=== PATIENT | female | born 1935 | race Caucasian/White ===

== ENCOUNTER 2016-12-31 00:18 | Inpatient (IN) | payer OTHER ==
[~2016-12-31] VITALS: Ht 160 cm; Wt 49.9 kg
--- NOTE | 2016-12-31 03:22 | ED CLINICAL REPORT ---
Clinical Report - Physicians/Mid Levels Located Within [facility] [address] [place] [address] 12/31/2016 0:18 Patient: ANSELMO HURTADO Time Seen: 00:26. Arrived- By private vehicle. Historian- patient and family. HISTORY OF PRESENT ILLNESS Chief Complaint: DYSPNEA. This started 3 days ago; Lots worse tonight, "I felt like I was drowning" after 20 foot walk. Usually an walk 75 feet with a walker and is still present. It was gradual in onset. The dyspnea is severe and is worsened by walking. No cough, sputum production, fever, wheezing or chills. No chest pain or discomfort. She has had dyspnea on exertion and orthopnea. Similar symptoms previously: Several times. Recent medical care: The patient was seen recently at this facility in the emergency department. ( UTI). REVIEW OF SYSTEMS The patient has had chills, a cough and difficulty breathing. No fever, photophobia, ear pain, sore throat or chest pain. No pedal edema, abdominal pain, black stools, bloody stools or constipation. No diarrhea, nausea, vomiting, urinary frequency or laceration. No headache, head injury or difficulty with urination. PAST HISTORY PAST HISTORY PCP: Walter PROBLEMS: Influenza. SOB. Hip Fracture. Fall. Bronchospasm. Pneumonia. COPD - Chronic Obstructive Pulmonary Disease. ADDITIONAL SURGERIES: Hip Surgery. Tonsillectomy. SOCIAL HISTORY Former smoker. ADDITIONAL NOTES The nursing notes have been reviewed. PHYSICAL EXAM Vital Signs: 12/31/2016 04:02 BP: 158/76. HR: 114. RR: 20. O2 saturation: 98%. Temp: 98 F. Pain level now: 0/10. 12/31/2016 02:51 BP: 125/64. HR: 118. RR: 17. O2 saturation: 97%. 12/31/2016 02:28 BP: 160/80. HR: 123. RR: 25. O2 saturation: 96%. 12/31/2016 01:44 BP: 146/87. HR: 118. RR: 20. O2 saturation: 95%. 12/31/2016 01:09 BP: 162/75. HR: 114. RR: 20. O2 saturation: 94%. Pain level now: 0/10. 12/31/2016 00:32 Temp: 97.5 F. 12/31/2016 00:23 BP: 164/91. HR: 116. RR: 28. O2 saturation: 83%. Pain level now: 0/10. Appearance: Alert. No acute distress. Eyes: Eyes normal inspection. ENT: Pharynx normal. Neck: No jugular venous distention. CVS: Tachycardia. Respiratory: Prolonged expirations. Decreased air movement (Right greater than L). Expiratory mild bilateral wheezes present. No stridor or rales. Abdomen: Soft and nontender. Skin: Skin warm. Normal skin color. Extremities: Extremities exhibit normal ROM. No lower extremity edema. Neuro: No alteration in mental status. No motor deficit. No sensory deficit. LABS, X-RAYS, AND EKG Laboratory Tests: UA-Culture if indicated: (RAPHAEL: 12/31/2016 01:05) ( [facility] 12/31/2016 01:30) Final results Test Result Flag Units (Reference) URINE COLOR YELLOW URINE APPEARANCE CLEAR URINE GLUCOSE NEGATIVE (NEGATIVE) URINE BILIRUBIN NEGATIVE (NEGATIVE) URINE KETONE NEGATIVE (NEGATIVE) URINE SPECIFIC GRAVITY 1.010 (1.010-1.030) URINE PH 6.0 (5.0-8.0) URINE PROTEIN NEGATIVE (NEGATIVE) URINE UROBILINOGEN 0.2 EU/dL (0.2-1.0) URINE NITRITE NEGATIVE (NEGATIVE) URINE BLOOD NEGATIVE (NEGATIVE) URINE LEUK ESTERASE NEGATIVE (NEGATIVE) URINE RBC 0-1 rbc/hpf (0-1) URINE WBC NONE SEEN wbc/hpf (0-1) URINE EPITHELIAL CELLS NONE SEEN EPI/hpf (0-5) URINE BACTERIA NONE SEEN (NONE SEEN) URINE COMMENT CULT NOT INDICATED URINE CULTURES ARE SET-UP BASED ON THE FOLLOWING CRITERIA:POSITIVE NITRITEPOSITIVE LEUKOCYTE ESTERASEGREATER THAN 10 WHITE BLOOD CELLSMODERATE (2+) OR GREATER BACTERIA CBC w Diff: (RAPHAEL: 12/31/2016 00:55) ( [facility] 12/31/2016 00:59) Final results Test Result Flag Units (Reference) WHITE BLOOD COUNT 14.3 H K/uL (4.5-11.5) RED BLOOD COUNT 4.47 M/uL (4.00-5.20) HEMOGLOBIN 12.8 gm/dL (12.0-16.0) HEMATOCRIT 38.3 % (36.0-46.0) MEAN CELL VOLUME 86 fL (80-100) MEAN CORPUSCULAR HGB 29 pg (26-34) MEAN CORPUSCULAR HGB CONC 34 g/dL (31-37) RED CELL DISTRIBUTION WIDTH 12.6 % (11.6-14.8) PLATELET COUNT 241 K/uL (150-400) NEUTROPHIL % 88.4 H % (50-75) LYMPH % 4.2 L % (25-40) MONO % 4.7 % (3-14) EOSINOPHIL % 2.4 % (0-4) BASOPHIL % 0.3 % (0-2) PT with INR: (RAPHAEL: 12/31/2016 00:55) ( OrgRcvd 12/31/2016 01:59) Final results Test Result Flag Units (Reference) INR 0.9 (0.8-1.2) Low Intensity Therapy: INR 1.5-2.0 PT range 18.5-23.1Mod.Intensity Therapy: INR 2.0-3.0 PT range 23.1-31.5High Intensity Therapy: INR 2.5-3.5 PT range 27.4-35.5High Intensity Therapy 2: INR 3.0-4.0 PT range 31.5-39.3 [id number]: (RAPHAEL: 12/31/2016 00:55) ( MsgRcvd 12/31/2016 01:06) Final results Test Result Flag Units (Reference) D-DIMER QUANTITATIVE 0.82 H ug/mLFEU (0.27-0.52) The primary value of this quantitative assay relates toits negative predictive value (i.e. exclusion) of pulmonaryembolism/deep vein thrombosis/DIC.Elevated levels of d-dimer may also occur with:, age, cancer, inflammation, liver disease,post-op, infection, hematoma, coronary disease, peripheralarteriopathy, bleeding disorders and thrombolytic treatment.Results should be correlated with other clinical andradiological data.Testing Methodology: Latex Immunoassay Lactate, Serum: (RAPHAEL: 12/31/2016 01:53) ( MsgRcvd 12/31/2016 02:25) Final results Test Result Flag Units (Reference) LACTIC ACID 1.1 mmol/L (0.4-2.0) [id number]: (RAPHAEL: 12/31/2016 00:55) ( MsgRcvd 12/31/2016 02:24) Final results Test Result Flag Units (Reference) PROCALCITONIN <0.5 ng/mL (0-0.5) PCT Concentration: Interpretation : Risk/option for action PCT <=0.5 ng/mL : Systemic : Low risk forinfection(sepsis): progression to severeis not likely. : systemic infection.Local bacterial : CAUTION-PCT levelsinfection is : below 0.5 ng/mL do notpossible. : exclude an infection,because localizedinfections (withoutsystemic signs) may beassociated with suchlow levels. If PCT ismeasured very earlyafter a bacterialchallenge (usually <6hours), these valuesmay still be low. Inthis case PCT shouldbe re-assessed 6-24hours later. PCT >0.5 and : Systemic infection: Moderate risk for<= 2 ng/mL : (sepsis) is : progression to severepossible, but : systemic infection.other conditions : The patient should beare known to : closely monitoredelevate PCT. : both clinically andby re-assessing PCTwithin 6-24 hours. PCT > 2 ng/mL : Systemic infection: High risk for(sepsis) is likely: progression to severeunless other : systemic infection.causes are known. : PCT >= 10 ng/mL : Important systemic: High likelihood ofinflammatory : severe sepsis orresponse, almost : septic shock.exclusively due to:severe bacterial :sepsis or septic :shock. : BNP: (RAPHAEL: 12/31/2016 00:55) ( [facility] 12/31/2016 01:27) Final results Test Result Flag Units (Reference) B-TYPE NATRIURETIC PEPTIDE 18.0 pg/ml (5-100) CHEM 13 PANEL: (RAPHAEL: 12/31/2016 00:55) ( OrgRcvd 12/31/2016 01:26) Final results Test Result Flag Units (Reference) GLUCOSE 128 H mg/dL (70-110) BUN 26 H mg/dL (7-18) CREATININE 1.1 mg/dL (0.6-1.3) Estimated GFR 50.79 mL/min Estimated GFR- >60 mL/min Note: Persistent reduction over 3 months in eGFR<60 mL/min/1.73 m2 defines CKD. Patients with eGFR values>=60 mL/min/1.73 m2 may also have CKD if evidence ofpersistent proteinuria. Additional information may be foundat www.kidney.org. SODIUM 136 mmol/L (136-145) POTASSIUM 4.3 mmol/L (3.5-5.1) CHLORIDE 98 mmol/L (98-107) CARBON DIOXIDE 32 mmol/L (21-32) CALCIUM 8.8 mg/dL (8.5-10.1) TOTAL PROTEIN 7.0 g/dL (6.4-8.2) ALBUMIN 3.2 L g/dL (3.3-5.0) BILIRUBIN, TOTAL 0.3 mg/dL (0.0-1.0) ALKALINE PHOSPHATASE 115 U/L (46-116) AST (SGOT) 24 U/L (15-37) ALT (SGPT) 18 U/L (12-78) MAGNESIUM 2.0 mg/dL (1.8-2.4) CPK 107 U/L (24-260) TROPONIN I <0.05 L ng/mL (0.00-1.5) TROPONIN REFERENCE RANGE:<0.1 NEGATIVE0.1-1.5 INDETERMINANT>1.5 POSITIVE ABG: (RAPHAEL: 12/31/2016 03:20) ( MsgRcvd 12/31/2016 03:58) Final results Test Result Flag Units (Reference) FIO2 31 % (20-101) ABG MODE OF DELIVERY NC MODIFIED JUVENTINO TEST POSITIVE? YES ARTERIAL BLOOD GAS SITE RR ARTERIAL BLOOD GAS pH 7.40 (7.35-7.45) ABG PCO2 45.7 H mmHg (35-45) ABG PO2 79.8 mmHg (60.0-80.0) ABG BASE EXCESS 3.0 H mmol/L (-6.0--6.0) ABG HCO3 28.2 H mmol/L (20.0-26.0) ABG TCO2 29.6 mmol/L (24.0-30.0) ABG SfUtY5c 89.4 H mmHg (7.0-14.0) *NOTE: Normal rangeis based on aFIO2 of 21% ABG SAT O2 96.5 % (95.1-100.0) ABG TOTAL HEMOGLOBIN 12.9 g/dL (12.0-16.0) ABG O2 HEMOGLOBIN 94.9 L % (95.0-100.0) ABG CARBOXYHEMOGLOBIN 1.6 H % (0.5-1.5) ABG METHEMOGLOBIN 0.1 L % (0.4-1.5) ABG RHEMOGLOBIN 3.4 % . ABG: PARTIALLY COMPENSATED RESPIRATORY ACIDOSIS. on FIO2-3 liter/min nasal cannula. PROGRESS AND PROCEDURES Course of Care: 01:50 12/31/16. Decreased BS on R. 03:18 12/31/16. HR 117 RR TACHYPNEA CTA neg for PE positive for pneumonia Ceftriaxone and azithromycin IV ordered. Dr Girard here to see patient. Disposition orders written. Disposition: Admitted. CLINICAL IMPRESSION ACUTE DYSPNEA R PULMONARY INFILTRATES. (Electronically signed by Prabhjot Cameron MD 12/31/2016 13:36)
--- NOTE | 2016-12-31 03:22 | ED CLINICAL REPORT ---
Clinical Report - Physicians/Mid Levels [facility] [address] [place] [place] [address] 12/31/2016 0:18 Patient: ANSELMO HURTADO Time Seen: 00:26. Arrived- By private vehicle. Historian- patient and family. HISTORY OF PRESENT ILLNESS Chief Complaint: DYSPNEA. This started 3 days ago; Lots worse tonight, "I felt like I was drowning" after 20 foot walk. Usually an walk 75 feet with a walker and is still present. It was gradual in onset. The dyspnea is severe and is worsened by walking. No cough, sputum production, fever, wheezing or chills. No chest pain or discomfort. She has had dyspnea on exertion and orthopnea. Similar symptoms previously: Several times. Recent medical care: The patient was seen recently at this facility in the emergency department. ( UTI). REVIEW OF SYSTEMS The patient has had chills, a cough and difficulty breathing. No fever, photophobia, ear pain, sore throat or chest pain. No pedal edema, abdominal pain, black stools, bloody stools or constipation. No diarrhea, nausea, vomiting, urinary frequency or laceration. No headache, head injury or difficulty with urination. PAST HISTORY PAST HISTORY PCP: Walter PROBLEMS: Influenza. SOB. Hip Fracture. Fall. Bronchospasm. Pneumonia. COPD - Chronic Obstructive Pulmonary Disease. ADDITIONAL SURGERIES: Hip Surgery. Tonsillectomy. SOCIAL HISTORY Former smoker. ADDITIONAL NOTES The nursing notes have been reviewed. PHYSICAL EXAM Vital Signs: 12/31/2016 04:02 BP: 158/76. HR: 114. RR: 20. O2 saturation: 98%. Temp: 98 F. Pain level now: 0/10. 12/31/2016 02:51 BP: 125/64. HR: 118. RR: 17. O2 saturation: 97%. 12/31/2016 02:28 BP: 160/80. HR: 123. RR: 25. O2 saturation: 96%. 12/31/2016 01:44 BP: 146/87. HR: 118. RR: 20. O2 saturation: 95%. 12/31/2016 01:09 BP: 162/75. HR: 114. RR: 20. O2 saturation: 94%. Pain level now: 0/10. 12/31/2016 00:32 Temp: 97.5 F. 12/31/2016 00:23 BP: 164/91. HR: 116. RR: 28. O2 saturation: 83%. Pain level now: 0/10. Appearance: Alert. No acute distress. Eyes: Eyes normal inspection. ENT: Pharynx normal. Neck: No jugular venous distention. CVS: Tachycardia. Respiratory: Prolonged expirations. Decreased air movement (Right greater than L). Expiratory mild bilateral wheezes present. No stridor or rales. Abdomen: Soft and nontender. Skin: Skin warm. Normal skin color. Extremities: Extremities exhibit normal ROM. No lower extremity edema. Neuro: No alteration in mental status. No motor deficit. No sensory deficit. LABS, X-RAYS, AND EKG Laboratory Tests: UA-Culture if indicated: (RAPHAEL: 12/31/2016 01:05) ( [facility] 12/31/2016 01:30) Final results Test Result Flag Units (Reference) URINE COLOR YELLOW URINE APPEARANCE CLEAR URINE GLUCOSE NEGATIVE (NEGATIVE) URINE BILIRUBIN NEGATIVE (NEGATIVE) URINE KETONE NEGATIVE (NEGATIVE) URINE SPECIFIC GRAVITY 1.010 (1.010-1.030) URINE PH 6.0 (5.0-8.0) URINE PROTEIN NEGATIVE (NEGATIVE) URINE UROBILINOGEN 0.2 EU/dL (0.2-1.0) URINE NITRITE NEGATIVE (NEGATIVE) URINE BLOOD NEGATIVE (NEGATIVE) URINE LEUK ESTERASE NEGATIVE (NEGATIVE) URINE RBC 0-1 rbc/hpf (0-1) URINE WBC NONE SEEN wbc/hpf (0-1) URINE EPITHELIAL CELLS NONE SEEN EPI/hpf (0-5) URINE BACTERIA NONE SEEN (NONE SEEN) URINE COMMENT CULT NOT INDICATED URINE CULTURES ARE SET-UP BASED ON THE FOLLOWING CRITERIA:POSITIVE NITRITEPOSITIVE LEUKOCYTE ESTERASEGREATER THAN 10 WHITE BLOOD CELLSMODERATE (2+) OR GREATER BACTERIA CBC w Diff: (RAPHAEL: 12/31/2016 00:55) ( [facility] 12/31/2016 00:59) Final results Test Result Flag Units (Reference) WHITE BLOOD COUNT 14.3 H K/uL (4.5-11.5) RED BLOOD COUNT 4.47 M/uL (4.00-5.20) HEMOGLOBIN 12.8 gm/dL (12.0-16.0) HEMATOCRIT 38.3 % (36.0-46.0) MEAN CELL VOLUME 86 fL (80-100) MEAN CORPUSCULAR HGB 29 pg (26-34) MEAN CORPUSCULAR HGB CONC 34 g/dL (31-37) RED CELL DISTRIBUTION WIDTH 12.6 % (11.6-14.8) PLATELET COUNT 241 K/uL (150-400) NEUTROPHIL % 88.4 H % (50-75) LYMPH % 4.2 L % (25-40) MONO % 4.7 % (3-14) EOSINOPHIL % 2.4 % (0-4) BASOPHIL % 0.3 % (0-2) PT with INR: (RAPHAEL: 12/31/2016 00:55) ( SdgRcvd 12/31/2016 01:59) Final results Test Result Flag Units (Reference) INR 0.9 (0.8-1.2) Low Intensity Therapy: INR 1.5-2.0 PT range 18.5-23.1Mod.Intensity Therapy: INR 2.0-3.0 PT range 23.1-31.5High Intensity Therapy: INR 2.5-3.5 PT range 27.4-35.5High Intensity Therapy 2: INR 3.0-4.0 PT range 31.5-39.3 [id number]: (RAPHAEL: 12/31/2016 00:55) ( MsgRcvd 12/31/2016 01:06) Final results Test Result Flag Units (Reference) D-DIMER QUANTITATIVE 0.82 H ug/mLFEU (0.27-0.52) The primary value of this quantitative assay relates toits negative predictive value (i.e. exclusion) of pulmonaryembolism/deep vein thrombosis/DIC.Elevated levels of d-dimer may also occur with:, age, cancer, inflammation, liver disease,post-op, infection, hematoma, coronary disease, peripheralarteriopathy, bleeding disorders and thrombolytic treatment.Results should be correlated with other clinical andradiological data.Testing Methodology: Latex Immunoassay Lactate, Serum: (RAPHAEL: 12/31/2016 01:53) ( MsgRcvd 12/31/2016 02:25) Final results Test Result Flag Units (Reference) LACTIC ACID 1.1 mmol/L (0.4-2.0) [id number]: (RAPHAEL: 12/31/2016 00:55) ( MsgRcvd 12/31/2016 02:24) Final results Test Result Flag Units (Reference) PROCALCITONIN <0.5 ng/mL (0-0.5) PCT Concentration: Interpretation : Risk/option for action PCT <=0.5 ng/mL : Systemic : Low risk forinfection(sepsis): progression to severeis not likely. : systemic infection.Local bacterial : CAUTION-PCT levelsinfection is : below 0.5 ng/mL do notpossible. : exclude an infection,because localizedinfections (withoutsystemic signs) may beassociated with suchlow levels. If PCT ismeasured very earlyafter a bacterialchallenge (usually <6hours), these valuesmay still be low. Inthis case PCT shouldbe re-assessed 6-24hours later. PCT >0.5 and : Systemic infection: Moderate risk for<= 2 ng/mL : (sepsis) is : progression to severepossible, but : systemic infection.other conditions : The patient should beare known to : closely monitoredelevate PCT. : both clinically andby re-assessing PCTwithin 6-24 hours. PCT > 2 ng/mL : Systemic infection: High risk for(sepsis) is likely: progression to severeunless other : systemic infection.causes are known. : PCT >= 10 ng/mL : Important systemic: High likelihood ofinflammatory : severe sepsis orresponse, almost : septic shock.exclusively due to:severe bacterial :sepsis or septic :shock. : BNP: (RAPHAEL: 12/31/2016 00:55) ( [facility] 12/31/2016 01:27) Final results Test Result Flag Units (Reference) B-TYPE NATRIURETIC PEPTIDE 18.0 pg/ml (5-100) CHEM 13 PANEL: (RAPHAEL: 12/31/2016 00:55) ( SdgRcvd 12/31/2016 01:26) Final results Test Result Flag Units (Reference) GLUCOSE 128 H mg/dL (70-110) BUN 26 H mg/dL (7-18) CREATININE 1.1 mg/dL (0.6-1.3) Estimated GFR 50.79 mL/min Estimated GFR- >60 mL/min Note: Persistent reduction over 3 months in eGFR<60 mL/min/1.73 m2 defines CKD. Patients with eGFR values>=60 mL/min/1.73 m2 may also have CKD if evidence ofpersistent proteinuria. Additional information may be foundat www.kidney.org. SODIUM 136 mmol/L (136-145) POTASSIUM 4.3 mmol/L (3.5-5.1) CHLORIDE 98 mmol/L (98-107) CARBON DIOXIDE 32 mmol/L (21-32) CALCIUM 8.8 mg/dL (8.5-10.1) TOTAL PROTEIN 7.0 g/dL (6.4-8.2) ALBUMIN 3.2 L g/dL (3.3-5.0) BILIRUBIN, TOTAL 0.3 mg/dL (0.0-1.0) ALKALINE PHOSPHATASE 115 U/L (46-116) AST (SGOT) 24 U/L (15-37) ALT (SGPT) 18 U/L (12-78) MAGNESIUM 2.0 mg/dL (1.8-2.4) CPK 107 U/L (24-260) TROPONIN I <0.05 L ng/mL (0.00-1.5) TROPONIN REFERENCE RANGE:<0.1 NEGATIVE0.1-1.5 INDETERMINANT>1.5 POSITIVE ABG: (RAPHAEL: 12/31/2016 03:20) ( MsgRcvd 12/31/2016 03:58) Final results Test Result Flag Units (Reference) FIO2 31 % (20-101) ABG MODE OF DELIVERY NC MODIFIED JUVENTINO TEST POSITIVE? YES ARTERIAL BLOOD GAS SITE RR ARTERIAL BLOOD GAS pH 7.40 (7.35-7.45) ABG PCO2 45.7 H mmHg (35-45) ABG PO2 79.8 mmHg (60.0-80.0) ABG BASE EXCESS 3.0 H mmol/L (-6.0--6.0) ABG HCO3 28.2 H mmol/L (20.0-26.0) ABG TCO2 29.6 mmol/L (24.0-30.0) ABG MhTuC4c 89.4 H mmHg (7.0-14.0) *NOTE: Normal rangeis based on aFIO2 of 21% ABG SAT O2 96.5 % (95.1-100.0) ABG TOTAL HEMOGLOBIN 12.9 g/dL (12.0-16.0) ABG O2 HEMOGLOBIN 94.9 L % (95.0-100.0) ABG CARBOXYHEMOGLOBIN 1.6 H % (0.5-1.5) ABG METHEMOGLOBIN 0.1 L % (0.4-1.5) ABG RHEMOGLOBIN 3.4 % . ABG: PARTIALLY COMPENSATED RESPIRATORY ACIDOSIS. on FIO2-3 liter/min nasal cannula. PROGRESS AND PROCEDURES Course of Care: 01:50 12/31/16. Decreased BS on R. 03:18 12/31/16. HR 117 RR TACHYPNEA CTA neg for PE positive for pneumonia Ceftriaxone and azithromycin IV ordered. Dr Girard here to see patient. Disposition orders written. Disposition: Admitted. CLINICAL IMPRESSION ACUTE DYSPNEA R PULMONARY INFILTRATES. (Electronically signed by Prabhjot Cameron MD 12/31/2016 13:36)
--- NOTE | 2016-12-31 03:22 | ED NURSING NOTES ---
Clinical Report - Nurses [facility] [address] [place] [address] 12/31/2016 0:18 [id number] TRI[facility] Triage time 00:Dec 31 2016. Acuity: LEVEL 3. Chief Complaint: SHORTNESS OF BREATH. 00:30 12/31/16. ( RT called to bedside, provider notified of patient status). SEPSIS SCREEN: Sepsis Screen: negative. Negative (no infection suspected/documented). --00:30 Bibi Ospina 00:23 12/31/16. BP: 164/91. HR: 116. RR: 28. O2 saturation: 83%. Pain level now: 0/10. Additional comments: NC applied at 3 L . --00:30 Bibi Ospina SEPSIS SCREEN: Sepsis Screen: negative. Negative (no infection suspected/documented). --00:30 Bibi Ospina 00:32 12/31/16. Temp: 97.5 F (oral). --00:32 Bibi Ospina. Weight: 50.8 kg stated. Height/Length: 63 inches Per Patient. BMI: 19.8. --00:24 Bibi Ospina. Medications Combivent Inhalation, as needed. Nebulizer. --00:25 Bibi Ospina. Allergies No Known Drug Allergy. --00:25 Bibi Ospina. Medication/allergy information source: the patient. --00:30 Bibi Ospina. History Arrived by private vehicle. Historian: patient. Accompanied by family. Primary physician (hoa). This started just prior to arrival. ( Patient reports she has COPD. She states that she has been feeling "under the weather" for a few days. She reports shortness of breath tonight that has no improved with her inhaler.). PAST MEDICAL HX: Immunizations: up-to-date. The patient is post-menopausal. SOCIAL HX: Former smoker, end date 2001. No alcohol use or drug use. No infectious disease exposure. ABUSE ASSESSMENT: No report of abuse. SELF HARM ASSESSMENT: A self harm assessment was performed. The patient answered "no" to the question "Have you recently felt down, depressed, or hopeless?", "Have you noticed less interest or pleasure in doing things?", "Do you have thoughts of harming or killing yourself?", "Are you here because you tried to hurt yourself?", "Have you ever tried to hurt yourself before today?", "Have you recently had thoughts about harming or killing others?" and "Do you have any dangerous items in your possession?". FALL RISK ASSESSMENT: Fall risk assessment completed. No fall risk identified. NUTRITIONAL RISK ASSESSMENT: The nutritional risk assessment revealed no deficiencies. FUNCTIONAL ASSESSMENT: Functional assessment: no impairments noted. LEARNING NEEDS ASSESSMENT: The learning needs assessment revealed no barriers. SKIN INTEGRITY ASSESSMENT: Skin integrity risk assessment completed. No skin integrity risk identified. --00:30 Bibi Ospina. PROBLEMS: Pyelonephritis. Influenza. Immunizations. LNMP - Last Normal Menstrual Period. SOB. Hip Fracture. Fall. Bronchospasm. Pneumonia. COPD - Chronic Obstructive Pulmonary Disease. --00:26 Bibi Ospina. ADDITIONAL SURGERIES: Hip Surgery. Tonsillectomy. --00:26 Bibi Ospina. Interventions ID band on patient. To treatment room. --00:30 Bibi Ospina. PHYSICAL ASSESSMENT GENERAL / NEURO / PSYCH: Alert. Oriented X 4. Appears in distress. RESPIRATORY: Moderate respiratory distress. The patient can speak a few words at a time. Retractions. CVS: Cardiac rhythm: sinus tachycardia. SKIN: Skin is dry. Skin is cool. --00:31 Bibi Ospina. NURSING PROGRESS NOTES The initial plan of care for this patient has been created This plan of care was discussed with the patient and family. Oxygen administered by nasal cannula at 3 liters. equipment monitor phototypesetting, pulse oximeter and NIBP monitor placed on patient; monitor alarms on. Patient gowned. Head of bed elevated. Reassurance given to the patient. Patient identifiers checked. Call light placed in reach. Side rails up x 1. Bed placed in lowest position. Brakes of bed on. Patient ready for evaluation- chart flagged and ED physician notified. --00:32 Bibi Ospina 00:42 12/31/2016 Duoneb (Ipratropium-Albuterol) Neb TX Nebulizer 1 unit dose given. Given by the respiratory therapist. Allergies verified and confirmed 5 rights. --00:42 Bibi Ospina 00:52 12/31/2016 Site #1 started via IV in the left antecubital space with an 20g angiocath, with aseptic technique and good blood return; one attempt. Blood drawn: rainbow set. Labeled in the presence of the patient and sent to the lab. Saline lock flushed with 10 mL saline. --00:52 AliM ( Imaging at bedside.). --00:53 AliM ( RT at bedside, she states peak flow pre nebulizer treatment was 100 and peak flow after was 100. She states the patient is clear and feels improved after the nebulizer treatment). --00:55 Bibi Ospina 8 fr in/out catheterization. During procedure hand hygiene observed and sterile equipment and aseptic technique used. Return of yellow-colored clear urine. She tolerated procedure well (Provider concerned for potential UTI). --01:09 Bibi Ospina 01:09 12/31/16. BP: 162/75. HR: 114. RR: 20. O2 saturation: 94% on nasal cannula at 3 liters/minute. Temp: deferred. Pain level now: 0/10. --01:17 Bibi Ospina 01:17 12/31/2016 SOLU-MEDROL (MethylPREDNISolone Sodium Succ) IVP 125 mg given over 2 minute(s) via site #1. Allergies verified and confirmed 5 rights. IV patency established. IV site checked: no pain, redness, or swelling. IV flushed thoroughly pre- and post-medication administration. IVP given by RN. --01:17 Bibi Ospina 01:44 12/31/16. BP: 146/87. HR: 118. RR: 20. O2 saturation: 95% on nasal cannula at 3 liters/minute. --01:46 Bibi Ospina ( RT at bedside, lab to draw additional labs. Patient has no complaints at this time.). --02:04 Bibi Ospina Patient transported to NE by stretcher with tech. (02:07 Dec 31 2016). --02:07 Bibi Ospina ( Patient assisted with bedpan.). --02:29 Bibi Ospina 02:28 12/31/16. BP: 160/80. HR: 123. RR: 25. O2 saturation: 96% on nasal cannula at 3 liters/minute. --02:29 Bibi Ospina 02:32 12/31/2016 Started bag #1 1000 mL IV Fluids IV NS (Saline); at 250 mL/hr over 3 hour(s) via site #1 via IV pump. Allergies verified and confirmed 5 rights. IV patency established. IV site checked: no pain, redness, or swelling. IV flushed thoroughly pre- and post-medication administration. --02:32 Bibi Ospina ( Pt does feel better and was taken off the bedpan.). --02:52 Parth Nelson R.N. 02:51 12/31/16. BP: 125/64. HR: 118. RR: 17. O2 saturation: 97%. Pain level now 0/10. --02:52 Parth Nelson R.NShayan ( Plan of care discussed with patient and spouse.). --03:20 Bibi Ospina ( Lab at bedside obtaining blood cultures). --03:34 Bibi Ospina ( RT is in the room for a ABG.). --03:44 Parth Nelson R.N. 03:49 12/31/2016 Started 2 gm of Ceftriaxone IVPB in bag #1 50 mL; at 150 mL/hr over 20 minute(s) via site #1 via IV pump. Allergies verified and confirmed 5 rights. IV patency established. IV site checked: no pain, redness, or swelling. IV flushed thoroughly pre- and post-medication administration. --03:49 Bibi Ospina 03:54 12/31/16. ( RT at bedside drawing blood gas.). --03:54 Bibi Ospina 04:07 12/31/2016 Started 500 mg of Azithromycin IVPB in bag #1 250 mL; at 250 mL/hr over 1 hour(s) via site #1 via IV pump. Allergies verified and confirmed 5 rights. IV patency established. IV site checked: no pain, redness, or swelling. IV flushed thoroughly pre- and post-medication administration. --04:07 Bibi Ospina 04:07 12/31/2016 Ceftriaxone IVPB Discontinued: bag #1 completed. Total amount infused: 50 mL. IV patency established. IV site checked: no pain, redness, or swelling. IV flushed thoroughly. --04:07 Bibi Ospina ( Admitting provider at bedside discussing plan of care with patient and her spouse). --04:13 Bibi Ospina 04:46 12/31/2016 Azithromycin IVPB Continued: at the rate of 250 mL/hr. 200 mL remaining bag #1. IV patency established. IV site checked: no pain, redness, or swelling. IV flushed thoroughly. --04:46 Bibi Ospina 04:47 12/31/2016 IV Fluids IV NS Continued: upon admission at the rate of 250 mL/hr. 300 mL remaining bag #1. IV patency established. IV site checked: no pain, redness, or swelling. IV flushed thoroughly. --04:47 Bibi Ospina. DISPOSITION / DISCHARGE 04:12/31/16. Condition at departure: stable. --04:07 Bibi Ospina 04:02 12/31/16. BP: 158/76. HR: 114. RR: 20. O2 saturation: 98% on room air. Temp: 98 F (oral). Pain level now: 0/10. --04:07 Bibi Ospina Report was given to a nurse via a phone call. Report included patient's care, treatment, medications, reviewed medication reconcilliation, and condition (including any recent changes or anticipated changes). All questions were answered. Report was acknowledged and care was transferred. (Annika ROBERTSON). --04:46 Bibi Ospina 04:46 12/31/2016 Site #[address] upon admission; patent, no pain and no signs of infection or infiltration; flushes easily. --04:46 Bibi Ospina Patient's personal items include: shirt, pants, socks and shoes; items were placed in belongings bag and transported with the patient. --04:47 Bibi Ospina Admitted. --04:48 Bibi Ospina Departure time: 04:55. Condition at departure: stable. ( Pt is being transported to room 206 by the nursing supervisor concrete stone finishing. Pt is being transported by stretcher.). --04:55 Parth Nelson R.N. Locked/Released at 12/31/2016 4:55 by Parth Nelson R.N.
--- NOTE | 2016-12-31 03:22 | ED ORDER SUMMARY ---
..... Patient: ANSELMO HURTADO OrderSheet [facility] VisitID: [id number] [address] [place], [place] [id number] 81y, F Registration Date/Time: 12/31/2016 ORDER SHEET Weight: 50.8 kg (stated) Allergies: No Known Drug Allergy GENERAL ORDERS: Chest 1V Urgent (00:36 12/31/2016 Destinee MCCLELLAN) (Ack 0:39 SRedmond) (0:55 KHoerner) -- (cath ua) (00:36 12/31/2016 Destinee MCCLELLAN) (Ack 0:42 SRedmond) (1:18 HSoule) Cardiac Panel Stat (00:12/31/2016 Destinee MCCLELLAN) (Ack 0:39 SRedmond) (1:42 AMcQuoid ER Tech1) BNP Urgent (00:36 12/31/2016 Destinee MCCLELLAN) (Ack 0:39 SRedmond) (1:42 AMcQuoid ER Tech1) D-Dimer Urgent (00:36 12/31/2016 Destinee MCCLELLAN) (Ack 0:39 SRedmond) (1:42 AMcQuoid ER Tech1) Professional Services Consultant (Continuous) (00:36 12/31/2016 Destinee MCCLELLAN) (0:37 HSoule) Oxygen (2 L/min) (NC) (00:37 12/31/2016 Destinee MCCLELLAN) (0:37 HSoule) Pulse oximeter (00:37 12/31/2016 Destinee MCCLELLAN) (0:37 HSoule) UA-Culture if indicated Urgent (00:37 12/31/2016 Destinee MCCLELLAN) (Ack 0:40 SRedmond) (1:42 AMcQuoid ER Tech1) PCT (Procalcitonin) Urgent (01:38 12/31/2016 Destinee MCCLELLAN) (Ack 1:41 AMcQuoid ER Tech1) (1:42 AMcQuoid ER Tech1) Lactate, Serum Urgent (01:38 12/31/2016 Destinee MCCLELLAN) (Ack 1:41 AMcQuoid ER Tech1) (1:57 AMcQuoid ER Tech1) PT with INR Urgent (01:44 12/31/2016 Destinee MCCLELLAN) (Ack 1:46 Teodoro) (2:32 AMcQuoid ER Tech1) CTA Thorax w Cont (No) (50.8 GFR) Urgent (01:45 12/31/2016 Destinee MCCLELLAN) (Ack 1:47 EMELIAoelul) (2:19 RFay) - (CHEST PT - ? MUCUS PLUG ON R) (01:49 12/31/2016 Destinee MCCLELLAN) (Ack 1:54 EMELIAoelul) (2:04 HSoule) ABG (G) Urgent (03:19 12/31/2016 Destinee MCCLELLAN) (Ack 3:23 HSoule) (4:08 HSoule) Blood Culture (No) (N/A) Urgent (03:19 12/31/2016 Destinee MCCLELLAN) (Ack 3:23 HSoule) (3:49 HSoule) -- (ANTIBIOTICS AFTER BLOOD CULTURE.) (03:20 12/31/2016 Destinee MCCLELLAN) (3:23 HSoule) MEDICATION ORDERS: DuoNeb Neb Tx 1 unit dose (NOW) (00:38 12/31/2016 Destinee MCCLELLAN) (0:42 HSoule) IV FLUIDS: IV Saline Lock (00:37 12/31/2016 Destinee MCCLELLAN) (Ack 0:37 HSoule) (1:18 HSoule) Solu-MEDROL IV 125 mg (NOW) (00:38 12/31/2016 Destinee MCCLELLAN) (Ack 0:42 HSoule) (1:17 HSoule) IV NS : initial bolus none -, then 250 mL/hr for 3h (NOW); Urgent (01:49 12/31/2016 Destinee MCCLELLAN) (Ack 1:51 HSoule) (2:32 HSoule) Ceftriaxone IV 2 gm/50mL (NOW) (03:19 12/31/2016 Destinee MCCLELLAN) (Ack 3:40 HSoule) (3:49 HSoule) Azithromycin IV 500 mg/250 mL (NOW) (03:19 12/31/2016 Destinee MCCLELLAN) (Ack 3:40 HSoule) (4:07 HSoule) ORDER SHEET NOTES: [Electronically signed by Parth Nelson R.N. (04:55 12/31/2016)] [Electronically signed by Prabhjot Cameron MD (13:36 12/31/2016)] [Electronically locked/signed by Parth Nelson R.N. (04:55 12/31/2016)]
--- NOTE | 2016-12-31 04:29 | Progress Note ---
Subjective General Brief hx full note dictated: 81 y.o female admitted for copd, ? pneumonia, sob acute over last week. A/P: copd, pneumonia plan: prednisone, inhalers, antibiotics Code- DNR/DNI
[2016-12-31 05:15] VITALS: BP 140/84
[2016-12-31 06:19] VITALS: BP 124/71
--- NOTE | 2016-12-31 06:44 | DIAGNOSTIC IMAGING REPORT ---
PROCEDURE: XR CHEST 1 VIEW INDICATION: SHORTNESS OF BREATH TECHNIQUE: Portable AP view (0050 hours) COMPARISON: Compared to chest x-ray on 12/28/2015. FINDINGS: Allowing for overlying wires and electrodes, there is mild chronic scarring in the right middle lobe. Lungs are otherwise clear (COPD). Heart and mediastinum are normal. Thorax is normal. IMPRESSION: 1. Mild chronic right middle lobe parenchymal scarring. 2. Chronic obstructive pulmonary disease 3. Otherwise negative chest.
--- NOTE | 2016-12-31 06:53 | HISTORY AND PHYSICAL ---
ADMITTED: 12/31/2016 CHIEF COMPLAINT: 1. Shortness of breath HISTORY OF PRESENT ILLNESS: The patient states she was doing well about a week ago where she was seen in our clinic for an adult wellness evaluation and everything was fine. Over the last week, however, she has had increasing shortness of breath and her treatment with nebulizers were not working well at home. She also had an increased difficulty with walking around, more wobbly than her usual, and her shortness of breath has also worsened with weakness over the last few years since a fracture. Her decision this evening, as she was unable to stand without significant weakness and shortness of breath, was go into the emergency department for further evaluation. In the emergency department, they had a workup which included a CT pulmonary angiogram that showed possible acute infection and she is being admitted for possible pneumonia or infection, chronic obstructive pulmonary disease exacerbation. MEDICAL/SURGICAL HISTORY: Past medical history: She has had chronic obstructive pulmonary disease. Past surgical history: Left total hip, tonsillectomy and nose repair. MEDICATIONS: 1. Chlorphen SR 12 mg caps 1 p.o. daily. 2. Ibuprofen 200 mg 1-2 q.4-6 hours p.r.n. pain. 3. Ipratropium/albuterol nebulizer 4 times a day. 4. ProAir 2 puffs every 4 hours p.r.n. 5. Aspirin 325 mg p.o. daily. 6. Pravachol 40 mg p.o. daily. 7. She uses 2 liters of oxygen at home. ALLERGIES: 1. TO MEDICATIONS NONE KNOWN. SOCIAL HISTORY: She is . She has got 6 children. She quit smoking in 2000 and she started at age 21. She denies any significant alcohol or drug use. FAMILY HISTORY: Father from an accident. Her mother of old age, she has got diabetes in a paternal uncle. CODE STATUS: DO NOT RESUSCITATE/DO NOT INTUBATE. PHYSICAL EXAMINATION: GENERAL: She is an alert female who is talking in full sentences and appears to be in no acute distress. VITAL SIGNS: Blood pressure of 164/91, heart rate of 116, O2 saturation of 83% on 3 liters. Temperature is 97.5. HEENT: Extraocular movements intact. Pupils equal, round, and reactive to light. Oropharynx is with moist mucous membranes. There are dentures above and below. NECK: Supple without lymphadenopathy. LUNGS: Coarse breath sounds bilaterally with some faint wheezes and poor air movement, some slight increased work of breathing. GENITOURINARY: Deferred. RECTAL: Deferred. BREAST: Deferred. HEART: Regular rate and rhythm. No murmur. ABDOMEN: Soft. It is nontender, nondistended. EXTREMITIES: No edema. No sores. LAB/IMAGING: An ABG shows a pH of 7.39, pCO2 of 45, pO2 of 79, O2 saturation 96.5. Her CBC 14.3, hematocrit 38.3, and platelets of 241. Glucose 128. BUN of 26, creatinine of 1.1, sodium 136, potassium 4.3, chloride 98, carbon dioxide 32, magnesium 2.0, calcium 8.8, total protein 7.0, albumin 3.2, bilirubin 0.3, alkaline phosphatase 115, AST 24, ALT 18. CPK 107. Troponin I less than 0.05, BNP of 18. D-dimer of 0.82. Procalcitonin less than 0.5. PT/INR 0.9. Urinalysis is negative. Lactic acid 1.1. A chest x-ray shows right lower lobe scarring as well as diffuse changes from COPD and almost honeycombing appearance to her lungs. A CT pulmonary angiogram shows no evidence of pulmonary embolism or dissection. Areas tree bud opacity in the right upper lobe, middle lobe, and right lower lobe, possible infection bronchiectasis in the right middle lobe and wall thickening in the esophagus. Esophagitis not excluded small hiatal hernia. IMPRESSION: 1. This is an 81-year-old female who presents with chronic obstructive pulmonary disease and shortness of breath, acute exacerbation, worsening over the last week; however, also progressive lung disease over the last year. She has been seen as of this last summer by Dr. Crockett through [facility], who noted her severe lung disease as well and she was supposed to have a followup with him a few months ago. PLAN: I will treat her with prednisone, antibiotics, inhalation treatment with Xopenex/albuterol as her heart rate is already tachycardic and I anticipate that she will improve over the next few days to a baseline of minimal activity and shortness of breath due to her chronic lung disease. I anticipate she will follow up with Dr. Crockett as an outpatient.
--- NOTE | 2016-12-31 08:28 | DIAGNOSTIC IMAGING REPORT ---
PROCEDURE: CTA THORAX WITH CONTRAST INDICATION: Shortness of breath. Cough. TECHNIQUE: 80 ml of Isovue 370 was injected intravenously and axial images were obtained of the entire thorax with 3D sagittal and coronal MIP reconstructions. Preliminary report provided by Eladia Hancock MD ([facility]). COMPARISON: Comparison is made to chest x-ray earlier today (12/31/2016). FINDINGS: Pulmonary hyperexpansion and chronic obstructive pulmonary disease. There is mild biapical pleural scarring with moderate right middle lobe atelectasis (appears chronic). There are mild parenchymal changes in the right upper lung with bronchial wall thickening at the right lung base. Pulmonary vessels are normal and there is no evidence of pulmonary embolus. Heart is of normal size. Moderate calcified atheromatous changes of the aorta Moderate hiatal hernia (versus prior fundoplication). Mild degenerative changes of the thoracic spine IMPRESSION: 1. Chronic obstructive pulmonary disease. 2. Moderate right middle lobe chronic parenchymal scarring/volume loss. 3. Mild parenchymal changes in right upper lung with bronchial wall thickening at the right lung base. Consider bronchopneumonia. 4. Moderate hiatal hernia (versus prior fundoplication). 5. Findings discussed with Dr. Prabhjot Cameron All CT scans at this facility use dose modulation, iterative reconstruction, and/or weight-based dosing when appropriate to reduce radiation dose to as low as reasonably achievable.
[2016-12-31 10:43] VITALS: BP 132/59
--- NOTE | 2016-12-31 13:36 | ED DISCHARGE INSTRUCTIONS ---
Patient: ANSELMO HURTADO General Instructions [facility] VisitID: [id number] [address] [place] [address] 81y, F Registration Date/Time: 12/31/2016 ACUTE DYSPNEA R PULMONARY INFILTRATES. (Electronically signed by Prabhjot Cameron MD 12/31/2016 13:36)
--- NOTE | 2016-12-31 13:36 | ED MED RECONCILIATION SUMMARY ---
Patient: ANSELMO HURTADO Medication Reconciliation Report [facility] VisitID: [id number] [address] [place] [address] 81y, F Registration Date/Time: 12/31/2016 Weight: 50.8 kg Height/Length: 63 in. BMI: 19.8 ALLERGIES: No Known Drug Allergy The patient's Home Medications are listed below: THE FOLLOWING MEDICATIONS NEED TO BE RECONCILED: Combivent Inhalation Nebulizer The source(s) of the original Home Medication information: patient The following Medications were given to the patient in the Emergency Department: Duoneb [Neb Tx] Neb TX 1 unit dose, administered: 12/31/2016 12:42:00 AM SOLU-MEDROL [IVP] IVP 125 mg, administered: 12/31/2016 1:17:00 AM IV NS IV Fluids bolus 0, then 250 mL/hr, administered: 12/31/2016 2:32:00 AM Ceftriaxone [IVPB] IVPB bolus 0, then 2 gm 150 mL/hr, administered: 12/31/2016 3:49:00 AM Azithromycin [IVPB] IVPB bolus 0, then 500 mg 250 mL/hr, administered: 12/31/2016 4:07:00 AM The following Medications were prescribed to the patient: None.
--- NOTE | 2016-12-31 13:36 | ED MED RECONCILIATION SUMMARY ---
Patient: ANSELMO HURTADO Medication Reconciliation Report [facility] VisitID: [id number] [address] [place] [address] 81y, F Registration Date/Time: 12/31/2016 Weight: 50.8 kg Height/Length: 63 in. BMI: 19.8 ALLERGIES: No Known Drug Allergy The patient's Home Medications are listed below: THE FOLLOWING MEDICATIONS NEED TO BE RECONCILED: Combivent Inhalation Nebulizer The source(s) of the original Home Medication information: patient The following Medications were given to the patient in the Emergency Department: Duoneb [Neb Tx] Neb TX 1 unit dose, administered: 12/31/2016 12:42:00 AM SOLU-MEDROL [IVP] IVP 125 mg, administered: 12/31/2016 1:17:00 AM IV NS IV Fluids bolus 0, then 250 mL/hr, administered: 12/31/2016 2:32:00 AM Ceftriaxone [IVPB] IVPB bolus 0, then 2 gm 150 mL/hr, administered: 12/31/2016 3:49:00 AM Azithromycin [IVPB] IVPB bolus 0, then 500 mg 250 mL/hr, administered: 12/31/2016 4:07:00 AM The following Medications were prescribed to the patient: None.
--- NOTE | 2016-12-31 13:36 | ED MAR SUMMARY ---
..... Medication Administration Record [facility] [address] [place] [address] Patient: ANSELMO HURTADO Visit ID: [id number] 81y, F Weight: 50.8 kg Height/Length: 63 in BMI: 19.8 ALLERGIES: No Known Drug Allergy Given 00:42 12/31/2016 Bibi Ospina, Medication Administered: DUONEB [NEB TX] (IPRATROPIUM-ALBUTEROL), Dose: 1 unit dose Nebulizer Neb TX. Medication Ordered: DuoNeb Neb Tx 1 unit dose (NOW). Given 01:17 12/31/2016 Bibi Ospina, Medication Administered: SOLU-MEDROL [IVP] (METHYLPREDNISOLONE SODIUM SUCC), Dose: 125 mg IVP over 2 minute(s), Site: #1 left AC. Medication Ordered: Solu-MEDROL IV 125 mg (NOW). Start 02:32 12/31/2016 Bibi Ospina,, Continued Upon Admission 04:47 12/31/2016 Bibi Ospina, Medication Administered: IV NS (SALINE), Dose: IV Fluids over 3 hour(s), Rate: 250 mL/hr, Dispensed: 1000 mL bag, Site: #1 left AC. Medication Ordered: IV NS : initial bolus none -, then 250 mL/hr for 3h (NOW); Urgent. Start 03:49 12/31/2016 Bibi Ospina,, Stop 04:07 12/31/2016 Bibi Ospina, Medication Administered: CEFTRIAXONE [IVPB], Dose: 2 gm IVPB over 20 minute(s), Rate: 150 mL/hr, Dispensed: 50 mL bag, Site: #1 left AC. Medication Ordered: Ceftriaxone IV 2 gm/50mL (NOW). Start 04:07 12/31/2016 Bibi Ospina,, Continued Upon Disposition 04:46 12/31/2016 Bibi Ospina, Medication Administered: AZITHROMYCIN [IVPB], Dose: 500 mg IVPB over 1 hour(s), Rate: 250 mL/hr, Dispensed: 250 mL bag, Site: #1 left AC. Medication Ordered: Azithromycin IV 500 mg/250 mL (NOW).
--- NOTE | 2016-12-31 13:36 | ED DISCHARGE INSTRUCTIONS ---
Patient: ANSELMO HURTADO General Instructions [facility] VisitID: [id number] [address] [place] [address] 81y, F Registration Date/Time: 12/31/2016 ACUTE DYSPNEA R PULMONARY INFILTRATES. (Electronically signed by Prabhjot Cameron MD 12/31/2016 13:36)
--- NOTE | 2016-12-31 13:36 | ED MAR SUMMARY ---
..... Medication Administration Record [facility] [address] [place] [address] Patient: ANSELMO HURTADO Visit ID: [id number] 81y, F Weight: 50.8 kg Height/Length: 63 in BMI: 19.8 ALLERGIES: No Known Drug Allergy Given 00:42 12/31/2016 Bibi Ospina, Medication Administered: DUONEB [NEB TX] (IPRATROPIUM-ALBUTEROL), Dose: 1 unit dose Nebulizer Neb TX. Medication Ordered: DuoNeb Neb Tx 1 unit dose (NOW). Given 01:17 12/31/2016 Bibi Ospina, Medication Administered: SOLU-MEDROL [IVP] (METHYLPREDNISOLONE SODIUM SUCC), Dose: 125 mg IVP over 2 minute(s), Site: #1 left AC. Medication Ordered: Solu-MEDROL IV 125 mg (NOW). Start 02:32 12/31/2016 Bibi Ospina,, Continued Upon Admission 04:47 12/31/2016 Bibi Ospina, Medication Administered: IV NS (SALINE), Dose: IV Fluids over 3 hour(s), Rate: 250 mL/hr, Dispensed: 1000 mL bag, Site: #1 left AC. Medication Ordered: IV NS : initial bolus none -, then 250 mL/hr for 3h (NOW); Urgent. Start 03:49 12/31/2016 Bibi Ospina,, Stop 04:07 12/31/2016 Bibi Ospina, Medication Administered: CEFTRIAXONE [IVPB], Dose: 2 gm IVPB over 20 minute(s), Rate: 150 mL/hr, Dispensed: 50 mL bag, Site: #1 left AC. Medication Ordered: Ceftriaxone IV 2 gm/50mL (NOW). Start 04:07 12/31/2016 Bibi Ospina,, Continued Upon Disposition 04:46 12/31/2016 Bibi Ospina, Medication Administered: AZITHROMYCIN [IVPB], Dose: 500 mg IVPB over 1 hour(s), Rate: 250 mL/hr, Dispensed: 250 mL bag, Site: #1 left AC. Medication Ordered: Azithromycin IV 500 mg/250 mL (NOW).
[2016-12-31 14:55] VITALS: BP 128/69
[2016-12-31 18:05] VITALS: BP 122/63
[2016-12-31 23:08] VITALS: BP 141/69
[2017-01-01 02:09] VITALS: BP 116/65
[2017-01-01 07:16] VITALS: BP 143/81
--- NOTE | 2017-01-01 08:36 | Provider's Discharge Care Plan ---
Problem, Goal, Plan Problem List 1. Pneumonia Goals: Improved health/wellness, Therapeutic intervention Instructions: Follow up as directed, Take meds as directed 2. COPD (chronic obstructive pulmonary disease) Goals: Improved health/wellness, Therapeutic intervention Instructions: Follow up as directed, Take meds as directed
[2017-01-01] MEDS ORDERED: COMBIVENT RESPIMAT (08:41)
[2017-01-01] MEDS ORDERED: O2 ×2 (08:42→08:44)
[2017-01-01] MEDS ORDERED: NEBULIZER ×2 (08:42→08:43)
[2017-01-01] MEDS ORDERED: ALBUTEROL2.5 MG/3 M IN (08:45)
[2017-01-01] MEDS ORDERED: ZITHROMAX250 MG PO ×2 (10:42→11:21)
[2017-01-01] MEDS ORDERED: CEPHALEXIN500 MG PO ×2 (10:42→11:21)
[2017-01-01] MEDS ORDERED: PREDNISONE20 MG PO ×2 (10:44→11:22)
--- NOTE | 2017-01-03 21:38 | DISCHARGE SUMMARY ---
ADMIT DATE: 12/31/2016 DISCHARGE DATE: 01/01/2017 PRIMARY CARE PHYSICIAN: Chad Watson MD ADMITTING DIAGNOSIS: 1. Includes chronic obstructive pulmonary disease exacerbation DISCHARGE DIAGNOSIS: 1. Chronic obstructive pulmonary disease, unchanged BRIEF HISTORY: This is an 81-year-old female with severe chronic obstructive pulmonary disease, presenting to the emergency department with complaints of shortness of breath. The patient states that over the last week, she has had increasing shortness of breath and her treatment with nebulizers were not working as well at home. She also had an increased difficulty with walking around, feeling more wobbly than usual. Her shortness of breath has also worsened with weakness over the past year since a fracture. Her decision this evening as she was unable to stand without significant weakness and shortness of breath, was go in to the emergency department for further evaluation. HOSPITAL COURSE: The patient was admitted to the hospital and received a steroid burst, nebulizer treatments, and IV antibiotics. She had significantly improved overnight and felt like she was able to be discharged to home the next day. The patient is chronically on 3 L of oxygen at baseline and this is what she was getting at the end of her hospitalization. PHYSICAL EXAMINATION: VITAL SIGNS: At the time of discharge, vital signs are stable. GENERAL: This is in elderly patient sitting up in the chair in no apparent distress. HEENT: Head is atraumatic, normocephalic. HEART: S1, S2, regular rate and rhythm. No S3, S4, gallops, or rubs. LUNGS: Coarse bilaterally without wheezing and with okay air movement in the setting of severe COPD and no increased work of breathing. ABDOMEN: Soft, nontender, nondistended without hepatosplenomegaly or masses. Bowel sounds are active. EXTREMITIES: There is no peripheral edema. DISCHARGE INSTRUCTIONS/MEDICATIONS: Discharge plan: The patient was discharged TO home with [facility] with instructions to follow up in the office within 3-5 days. Diet: Regular. Activity: Up ad gloria. Medications: Azithromycin 250 mg p.o. daily x4 days, Keflex 500 mg p.o. t.i.d. x10 days, prednisone 40 mg p.o. daily x5 days, 20 mg p.o. daily x5 days, 10 mg p.o. daily x6 days, Combivent inhaler, albuterol nebulizers.
== END 2017-01-01 12:35 | disposition home health service (06) | DRG 190 ==
LOC: ED SRH 00:18 → ACUTE2 SRH 03:31 → TRANS SRH 03:31 → ACUTE2 SRH 05:38
PROVIDERS: ADMIT Family Medicine
DX: J44.0 Chronic obstructive pulmonary disease with (acute) lower respiratory infection (principal); J18.9 Pneumonia, unspecified organism; J44.1 Chronic obstructive pulmonary disease with (acute) exacerbation; Z87.891 Personal history of nicotine dependence
CPT/HCPCS: 81460; 85241; 90004; 90065; 90074; 90100; 90616; 91320; 91556; 92031; 92610; 92720; 93004; 94060; 95059